=== PATIENT | male | born 1965 | race Caucasian/White ===

== ENCOUNTER 2017-08-29 06:08 | Day surgery (SDC) | payer OTHER ==
[2017-08-28 09:11] VITALS: BMI 23.3
[2017-08-29 06:35] VITALS: TEMP 97.6
[2017-08-29] MEDS: CYCLOPENTOLATE HCL 1% OPHTH SOLN 2 ML BOTTLE ONE ×3 (06:35→06:45)
[2017-08-29] MEDS: FLURBIPROFEN 0.03% OPHTH SOLN 2.5 ML BOTTLE ONE ×3 (06:35→06:45)
[2017-08-29] MEDS: TROPICAMIDE 1% OPHTH SOLN 15 ML BOTTLE ONE ×3 (06:35→06:45)
[2017-08-29] MEDS: PHENYLEPHRINE 2.5% OPHTH SOLN 15 ML BOTTLE ONE ×3 (06:35→06:45)
[2017-08-29] MEDS: CIPROFLOXACIN 0.3% EYE DROPS 5 ML BOTTLE ONE ×3 (06:35→06:45)
[2017-08-29] MEDS ORDERED: MIDAZOLAM HCL 2 MG/2 ML SINGLE DOSE VIAL ONE (07:20)
[2017-08-29] MEDS ORDERED: LIDOCAINE HCL/PF 1% SDV 5ML VIAL ONE (07:28)
[2017-08-29] MEDS ORDERED: EPINEPHrine/PF 1 MG/1 ML (1:1,000) AMPULE ONE (07:28)
[2017-08-29] MEDS ORDERED: TETRACAINE 0.5% OPHTH SOLN 2 ML BOTTLE ONE (07:28)
[2017-08-29] MEDS ORDERED: VANCOMYCIN 500 MG VIAL (RESTRICTED TO ID ONLY) ONE (07:28)
[2017-08-29] MEDS ORDERED: WATER FOR INJ,STERILE 10 ML ONE (07:29)
[2017-08-29] MEDS ORDERED: BSS (NA/CA/MG/K) BALANCED SALT SOLUTION OPHTH SOLN 15 ML BOTTLE ONE (07:29)
[2017-08-29] MEDS ORDERED: POVIDONE-IODINE 5% OPHTHALMIC PREP 30 ML SOLUTION ONE (07:29)
[2017-08-29] MEDS ORDERED: ACETAMINOPHEN 325 MG TABLET (FP) PO PRN (07:48)
[2017-08-29] MEDS ORDERED: TETRACAINE 0.5% OPHTH SOLN 2 ML BOTTLE OD ONE (07:57)
[2017-08-29] MEDS ORDERED: CYCLOPENTOLATE HCL 1% OPHTH SOLN 2 ML BOTTLE OP SCH (08:00)
[2017-08-29] MEDS ORDERED: CIPROFLOXACIN HCL 0.3% OPHTH 2.5ML BOTTLE OP SCH (08:00)
[2017-08-29] MEDS ORDERED: TROPICAMIDE 1% OPHTH SOLN 15 ML BOTTLE OP SCH (08:00)
[2017-08-29] MEDS ORDERED: FLURBIPROFEN 0.03% OPHTH SOLN 2.5 ML BOTTLE OP SCH (08:00)
[2017-08-29] MEDS ORDERED: PHENYLEPHRINE 2.5% OPHTH SOLN 15 ML BOTTLE OP SCH (08:00)
[2017-08-29] MEDS ORDERED: POVIDONE-IODINE 5% OPHTHALMIC PREP 30 ML SOLUTION OD ONE (08:09)
[2017-08-29] MEDS ORDERED: BSS (NA/CA/MG/K) BALANCED SALT SOLUTION OPHTH SOLN 15 ML BOTTLE OD ONE (08:17)
[2017-08-29] MEDS ORDERED: LIDOCAINE HCL 1% PRESERVATIVE FREE - 30ML VIAL IO ONE (08:17)
[2017-08-29] MEDS ORDERED: CHONDROITIN SU A/HYALUR SOD 1 KIT IO ONE (08:17)
[2017-08-29] MEDS ORDERED: EPINEPHrine/PF 1 MG/1 ML (1:1,000) AMPULE IO ONE ×2 (08:17→08:24)
--- NOTE | 2017-08-29 08:59 | SPEC ---
DATE OF OPERATION: 08/29/2017 PREOPERATIVE DIAGNOSIS: Cataract, right eye. POSTOPERATIVE DIAGNOSIS: Cataract, right eye. PROCEDURE: Phacoemulsification of right cataract with posterior chamber intraocular lens implantation. The lens used [id number], 22.0 diopter power, serial No. [id number]. SURGEON: Sveta Poole M.D. ANESTHESIA: Topical MAC. COMPLICATIONS: None. DESCRIPTION OF PROCEDURE: The patient was brought to the operating room and correctly identified along with the operative site and the correct intraocular lens florez. The patient was then prepped and draped in the usual sterile fashion including 5% Betadine solution in the conjunctival sac and an eyelid drape. An eyelid speculum was then placed in the eye. A paracentesis port was created and approximately 0.5 mL of preservative free Lidocaine was then injected into the eye. Viscoelastic was then injected to inflate the anterior chamber. A temporal clear corneal wound was created. A continuous circular capsulorrhexis was performed. The nucleus was then hydrodissected with BSS and removed with phacoemulsification. The remaining cortical material was irrigated and aspirated. Viscoelastic was injected to inflate the capsular bag and the intraocular lens was then implanted into the capsular bag. The remaining Viscoelastic was irrigated and aspirated from the eye. The IOL was noted to be well centered and completely covered by the anterior capsulorrhexis. Topical vancomycin was placed and the eye patched and shielded. All wounds were tested and found to be watertight. No suture was placed. The eye was then shielded. The patient was then discharged from the operating room in stable condition. SVETA POOLE M.D. [id number]
[2017-08-29 09:39] VITALS: BP 113/75; PULSE 86
== END 2017-08-29 10:05 | disposition home or self-care (01) ==
LOC: JASU-SURG 06:08
PROVIDERS: ATTEND Ophthalmology
PROC: 08RJ3JZ Replacement of Right Lens with Synthetic Substitute, Percutaneous Approach (ICD-10-PCS; principal; 2017-08-29 08:00)
DX: H26.9 Unspecified cataract (principal)

== ENCOUNTER 2017-09-13 12:45 | Day surgery (SDC) | payer OTHER ==
[2017-09-04 15:58] VITALS: BMI 24.2
[2017-09-13 13:17] LABS: BASO % 0.6 % (0-2.0); EOS % 2.1 % (0-4.5); HEMATOCRIT 43.5 % (35.4-49); HEMOGLOBIN 14.1 GM/dL (11.7-16.9); LYMPH % 29.3 % (8-40); MCH 29.8 pg (25.7-33.7); MCHC 32.5 g/dl (32.0-35.9); MEAN CELL VOLUME 91.7 fl (80-96); MEAN PLT VOLUME 8.3 fl (7.5-11.1); MONO % 10.1 % (3.8-10.2); NEUT % 57.9 % (42.8-82.8); PLATELET COUNT 233 K/MM3 (134-434); RBC 4.74 M/mm3 (4.00-5.60); RDW 13.1 % (11.9-15.9); WHITE BLOOD COUNT 5.8 K/mm3 (4.0-10.0)
[2017-09-13 13:46] VITALS: TEMP 97.8
[2017-09-13 13:49] LABS: INR 0.96 (0.82-1.09); PROTHROMBIN TIME (PATIENT) 10.8 SEC (9.98-11.88)
[2017-09-13 16:37] VITALS: BP 142/80; PULSE 85
--- NOTE | 2017-09-18 14:29 | PATH ---
Cytology Non-Gynecological Report Patient Name: JEAN-PIERRE BOWER [facility]. Rec. #: [id number] /Age/Gender: 1965 (Age: 52) / M Account: [id number] Location: RADIOLOGY Taken: 09/13/2017 Received: 09/14/2017 Reported: 09/18/2017 Physicians: Leyda Gandara M.D. Specimen(s) Received PELVIC CYST Clinical History Pelvic cyst Final Diagnosis PELVIC CYST, FINE NEEDLE ASPIRATION: NEGATIVE FOR MALIGNANT CELLS. SATISFACTORY FOR EVALUATION. CYSTIC LESION WITH MACROPHAGES. SCATTERED MACROPHAGES IN A HEMORRHAGIC BACKGROUND WITH PROTEINACEOUS DEBRIS AND RARE NEUTROPHILS. Comment: Immunohistochemical stains performed and interpreted at [facility] show CK7, CK20 and DANILO are negative. Additional immunohistochemical stains performed at [place], [place] ([id number]) and interpreted at [facility] highlight CD68+ macrophages. MOC31, JG, and D2-40 are negative. Suggest clinical/radiologic correlation. Electronically Signed Meli Mcguire M.D. Gross Description Approximately 50 cc of green fluid received fixed in 50% alcohol. Two cytofunnels and one cellblock prepared.
== END 2017-09-13 16:40 | disposition home or self-care (01) ==
LOC: JRADIR 12:45
PROVIDERS: ATTEND Urology
PROC: 0J9C3ZX Drainage of Pelvic Region Subcutaneous Tissue and Fascia, Percutaneous Approach, Diagnostic (ICD-10-PCS; principal; 2017-09-13)
DX: R19.07 Generalized intra-abdominal and pelvic swelling, mass and lump (principal)
CPT/HCPCS: 10030; 36415; 76098-TC; 77012-TC; 85025; 85610; 87070; 87075; 87205; 87899; 88173; 88341-TC; 88342-TC

== ENCOUNTER 2017-10-22 06:53 | Inpatient (IN) | payer OTHER ==
[2017-10-22 07:23] VITALS: BMI 24.2
[2017-10-22] MEDS ORDERED: ONDANSETRON 4 MG/2 ML VIAL IVPUSH ONE (08:24)
[2017-10-22] MEDS ORDERED: morphine CARPU-JECT 4 MG/1 ML DISP.SYRIN IVPUSH ONE (08:24)
[2017-10-22] MEDS ORDERED: ONDANSETRON 4 MG/2 ML VIAL ONE (08:41)
[2017-10-22] MEDS ORDERED: MORPHINE SULFATE 10 MG/1 ML *VIAL ONE (08:41)
--- NOTE | 2017-10-22 08:44 | PDOC ---
Attending Attestation - HPI HPI: 10/22/17 11:23 The patient is a 52 year old male with a significant PMH of undifferentiated pelvic mass, IDDM, and HTN who presents to the emergency department with abdominal pain that began approximately two weeks ago. The patient is also complaining of lower back pain, left leg limp, decreased urination, and constipation. Of note, the patient had a scheduled procedure on 10/24/17 for a cystic mass but was unable to wait. The patient denies chest pain, shortness of breath, headache and dizziness. Denies fever, chills, nausea, vomit, and diarrhea. Denies dysuria, frequency, urgency and hematuria. Allergies: Levofloxacin Past surgical history: None reported. Social history: No reported alcohol, drug, or cigarette use. PCP: Dr. Kelby Calvert <Latha Kaba - Last Filed: 10/22/17 11:23> - Resident Resident Name: Brandon Cason - ED Attending Attestation I have performed the following: I have examined & evaluated the patient, The case was reviewed & discussed with the resident, I agree w/resident's findings & plan, Exceptions are as noted - Physicial Exam PE: GENERAL: Awake, alert, and fully oriented. Appears uncomfortable. HEAD: No signs of trauma EYES: PERRLA, EOMI, sclera anicteric, conjunctiva clear ENT: Auricles normal inspection, hearing grossly normal, nares patent, oropharynx clear without exudates. Moist mucosa NECK: Normal ROM, supple, no lymphadenopathy, JVD, or masses LUNGS: Breath sounds equal, clear to auscultation bilaterally. No wheezes, and no crackles HEART: Regular rate and rhythm, normal S1 and S2, no murmurs, rubs or gallops ABDOMEN: Soft, diffusely tender, dec bowel sounds. +Guarding, no rebound. + Mild bladder distension. EXTREMITIES: Normal range of motion, no edema. No clubbing or cyanosis. No cords, erythema, or tenderness NEUROLOGICAL: Cranial nerves II through XII grossly intact. Normal speech, normal gait SKIN: Warm, Dry, normal turgor, no rashes or lesions noted. - Medical Decision Making Pt to have CT a/p to reevaluate the mass, likely admission as per Dr. Yeh. <Floresita Kumari - Last Filed: 10/22/17 16:21>
--- NOTE | 2017-10-22 09:14 | PDOC ---
History of Present Illness - General Chief Complaint: Urinary Problem Stated Complaint: URINE & BOWEL PROBLEM Time Seen by Provider: 10/22/17 08:11 History Source: Patient, Family Exam Limitations: Language Barrier - History of Present Illness Initial Comments: 10/22/17 09:05 Patient is a 52M with history of an undifferentiated pelvic mass, IDDM, HTN here today complaining of abdominal pain worsening over the past two weeks. He has associated pain in his lower back, left leg limp, decreased urination and constipation. He states that he cannot urinate normally, only having a small amount of urine coming out. He states that he's not had a bowel movement for 2 weeks. He is not on any opioids. Patient had the cystic mass drained on . MRI/CT show large presacral mass. Patient was scheduled for procedure on Sunday, but feels like he can't wait anymore. Past History - Past Medical History Allergies/Adverse Reactions: Allergies Allergy/AdvReac Type Severity Reaction Status Date / Time levofloxacin [From Levaquin] Allergy "MOUTH Verified 10/22/17 07:09 SWELLING,HIVES" Home Medications: Ambulatory Orders Insulin (Levemir) [Levemir Flexpen -] 15 units SQ DAILY 08/29/17 Metformin HCl 500 mg PO BID 08/29/17 Tamsulosin HCl 0.4 mg PO HS 08/29/17 Dapagliflozin Propanediol [Farxiga] 5 mg PO DAILY 10/22/17 Anemia: No Asthma: No Cancer: No Cardiac Disorders: No CVA: No COPD: No CHF: No DVT: No Dementia: No Diabetes: Yes GI Disorders: No Disorders: No HTN: No Hypercholesterolemia: No Liver Disease: No Seizures: No Thyroid Disease: No Other medical history: tumor in abdomen - Surgical History Abdominal Surgery: Yes Appendectomy: No Cardiac Surgery: No Cholecystectomy: No Lung Surgery: No Neurologic Surgery: No Orthopedic Surgery: No - Suicide/Smoking/Psychosocial Hx Smoking History: Never smoked Have you smoked in the past 12 months: No Hx Alcohol Use: No Drug/Substance Use Hx: No Substance Use Type: None Hx Substance Use Treatment: No Review of Systems - Review of Systems Comments:: 10/22/17 09:14 GENERAL/CONSTITUTIONAL: No fever or chills. 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 No sore throat. CARDIOVASCULAR: No chest pain or shortness of breath RESPIRATORY: No cough, wheezing, or hemoptysis. GASTROINTESTINAL: No vomiting, diarrhea. Positive for constipation and nausea. GENITOURINARY: No dysuria. Positive for increased frequency and decreased volume. MUSCULOSKELETAL: No joint or muscle swelling or pain. No neck or back pain. SKIN: No rash NEUROLOGIC: No headache, vertigo, loss of consciousness, or change in strength/ sensation. ENDOCRINE: No increased thirst. No abnormal weight change HEMATOLOGIC/LYMPHATIC: No anemia, easy bleeding, or history of blood clots. ALLERGIC/IMMUNOLOGIC: No hives or skin allergy. *Physical Exam - Vital Signs Last Vital Signs Temp Pulse Resp BP Pulse Ox 97.3 F L 87 18 137/83 97 10/22/17 07:07 10/22/17 07:07 10/22/17 07:07 10/22/17 07:07 10/22/17 07:07 - Physical Exam Comments: 10/22/17 09:16 GENERAL: Awake, alert, and fully oriented, in no acute distress HEAD: No signs of trauma, normocephalic, atraumatic EYES: PERRLA, EOMI, sclera anicteric, conjunctiva clear ENT: Auricles normal inspection, hearing grossly normal, nares patent, oropharynx clear without exudates. Moist mucosa NECK: Normal ROM, supple, no lymphadenopathy, JVD, or masses LUNGS: No distress, speaks full sentences, clear to auscultation bilaterally HEART: Regular rate and rhythm, normal S1 and S2, no murmurs, rubs or gallops, peripheral pulses normal and equal bilaterally. ABDOMEN: Distended and diffusely tender. No guarding, no rebound. EXTREMITIES: Normal inspection, Normal range of motion, no edema. No clubbing or cyanosis. NEUROLOGICAL: Cranial nerves II through XII grossly intact. Normal speech, favors left leg on gait, no focal sensorimotor deficits SKIN: Warm, Dry, normal turgor, no rashes or lesions noted. ED Treatment Course - LABORATORY CBC & Chemistry Diagram: 10/22/17 09:10 10/22/17 09:10 - RADIOLOGY Radiology Studies Ordered: Category Date Time Status ABDOMEN & PELVIS CT WITH CONTR [CT] Stat CT Scan 10/22/17 08:31 Ordered CHEST PA & LAT [RAD] Stat Radiology 10/22/17 08:22 Ordered Medical Decision Making - Medical Decision Making 10/22/17 09:17 Patient is 52M with history of undifferentiated mass, HTN, DM here today complaining of abdominal pain, decreased urination, and constipation. Vital signs stable and normal. Call placed to Dr Yeh, patient's surgeon. Confirms was due for procedure on Sunday. Will evaluate with CBC, CMP, PT/INR, Lipase, UA , UC, CT abd/pelvis. Will place leal to decompress bladder. Urologist: Dr Milo Calvert 10/22/17 11:21 Laboratory Tests 10/22/17 10/22/17 10/22/17 09:08 09:10 09:10 WBC 6.3 Hgb 14.4 Hct 43.7 Plt Count 223 BUN 22 H Creatinine 0.8 Urine Glucose (UA) 3+ H Urine WBC (Auto) 1 Urine RBC (Auto) 4 Patient urinating. Elal cancelled. CBC normal. UA positive for glucose, no infection. Cr wnl. CXR shows no free air , no acute cardiopulmonary process. CT pending. 10/22/17 13:02 CT shows mass increasing in size. Will admit to Per, call placed to Dr Yeh to advise of results. 10/22/17 13:25 Dr Albarado accepted admission. *DC/Admit/Observation/Transfer Diagnosis at time of Disposition: Abdominal mass - Discharge Dispostion Condition at time of disposition: Stable Admit: Yes - Referrals Referrals: Kelby Calvert MD [Primary Care Provider] - - Patient Instructions - Post Discharge Activity
[2017-10-22 09:25] LABS: BASO % 0.7 % (0-2.0); EOS % 0.9 % (0-4.5); HEMATOCRIT 43.7 % (35.4-49); HEMOGLOBIN 14.4 GM/dL (11.7-16.9); LYMPH % 19.7 % (8-40); MCH 30.3 pg (25.7-33.7); MEAN CELL VOLUME 91.8 fl (80-96); MEAN PLT VOLUME 8.1 fl (7.5-11.1); MONO % 8.1 % (3.8-10.2); NEUT % 70.6 % (42.8-82.8); PLATELET COUNT 223 K/MM3 (134-434); RBC 4.76 M/mm3 (4.00-5.60); WHITE BLOOD COUNT 6.3 K/mm3 (4.0-10.0)
[2017-10-22 09:42] LABS: URINE APPEARANCE CLEAR; URINE BILIRUBIN NEGATIVE (NEGATIVE); URINE BLOOD 2+ (NEGATIVE); URINE COLOR LTYELLOW; URINE GLUCOSE (UA) 3+ (NEGATIVE); URINE KETONE NEGATIVE (NEGATIVE); URINE LEUK ESTERASE NEGATIVE (NEGATIVE); URINE NITRITE NEGATIVE (NEGATIVE); URINE UROBILINOGEN NEGATIVE mg/dL (0.2-1.0)
[2017-10-22 09:45] LABS: INR 0.93 (0.82-1.09); PROTHROMBIN TIME (PATIENT) 10.5 SEC (9.98-11.88)
[2017-10-22 09:45] LABS: URINE PROTEIN 2+ (NEGATIVE)
[2017-10-22 09:47] LABS: EPI CELLS RARE /HPF (FEW); URINE HYALINE CAST 1 /lpf; URINE MUCUS RARE
[2017-10-22 09:49] LABS: ALBUMIN 3.3 g/dl (3.4-5.0); ALK PHOS 107 U/L (45-117); ANION GAP 5 (8-16); BILIRUBIN,TOTAL 0.4 mg/dL (0.2-1.0); BLOOD UREA NITROGEN 22 mg/dL (7-18); CALCIUM 7.9 mg/dL (8.5-10.1); CHLORIDE 106 mmol/L (98-107); CO2 27 mmol/L (21-32); CREATININE 0.8 mg/dL (0.7-1.3); GLUCOSE,RANDOM 123 mg/dL (74-106); POTASSIUM 4.8 mmol/L (3.5-5.1); SGOT/AST 14 U/L (15-37); SGPT/ALT 23 U/L (12-78); SODIUM 138 mmol/L (136-145); TOT PROT 6.4 g/dl (6.4-8.2)
[2017-10-22 09:59] LABS: LIPASE 254 U/L (73-393)
--- NOTE | 2017-10-22 18:18 | CONSULT ---
Consult Consult Specialty:: Surgery Reason for Consultation:: Pre-sacral cystic mass - History of Present Illness Chief Complaint: Abdominal pain History of Present Illness: The patient is a 52 year old male with a significant PMH large pre-sacral csytic mass, IDDM, and HTN who presents to the emergency department with perineal and abdominal pain that began approximately two weeks ago. The patient is also complaining of lower back pain, left leg limp, decreased urination, and constipation. Of note, the patient is scheduled for surgery on 10/24/17 for a cystic mass but is unable to wait. Patient had percutaneous cyst aspiration recently with negtive cytology. The patient denies chest pain, shortness of breath, headache and dizziness. Denies fever, chills, nausea, vomit, and diarrhea. Denies dysuria, frequency, urgency and hematuria. - History Source History Provided By: Family Member Limitations to Obtaining History: No Limitations - Past Medical History Cardio/Vascular: Yes: HTN Endocrine: Yes: Diabetes Mellitus - Alcohol/Substance Use Hx Alcohol Use: No - Smoking History Smoking history: Never smoked Have you smoked in the past 12 months: No Home Medications - Allergies Allergies/Adverse Reactions: Allergies Allergy/AdvReac Type Severity Reaction Status Date / Time levofloxacin [From Levaquin] Allergy "MOUTH Verified 10/22/17 07:09 SWELLING,HIVES" - Home Medications Home Medications: Ambulatory Orders Insulin (Levemir) [Levemir Flexpen -] 15 units SQ DAILY 08/29/17 Metformin HCl 500 mg PO BID 08/29/17 Tamsulosin HCl 0.4 mg PO HS 08/29/17 Dapagliflozin Propanediol [Farxiga] 5 mg PO DAILY 10/22/17 Review of Systems - Review of Systems Gastrointestinal: reports: Abdominal Pain, Constipation, Other (perineal pain) Genitourinary: reports: Dysuria, Frequency Physical Exam Vital Signs: Vital Signs Temperature 98.1 F 10/22/17 17:36 Pulse Rate 75 10/22/17 17:36 Respiratory Rate 16 10/22/17 17:36 Blood Pressure 150/94 10/22/17 17:36 O2 Sat by Pulse Oximetry (%) 98 10/22/17 17:36 Constitutional: Yes: Well Nourished, Anxious Eyes: Yes: Conjunctiva Clear HENT: Yes: Normocephalic Neck: Yes: Supple Cardiovascular: Yes: Regular Rate and Rhythm Respiratory: Yes: CTA Bilaterally Gastrointestinal: Yes: Soft, Other (mild LLQ tenderness) ...Rectal Exam: Yes: Other (+ perineal fullness to the left of intergluteal fold with tenderness) Integumentary: Yes: WNL Labs: CBC, BMP 10/22/17 09:10 10/22/17 09:10 Imaging - Results Cat Scan: Report Reviewed, Image Reviewed MRI: Report Reviewed, Image Reviewed Problem List - Problems (1) Presacral mass Assessment/Plan: Explained to patient that the undersigned is unable to perform the procedure this week. The patient and his are not willing to wait due to severe pain. Recommended consulting another surgeon to perform the procedure and they agreed. Dr. Albarado informed of the plan. Code(s): R19.09 - OTHER INTRA-ABDOMINAL AND PELVIC SWELLING, MASS AND LUMP
[2017-10-23] MEDS ORDERED: morphine CARPU-JECT 4 MG/1 ML DISP.SYRIN IVPB PRN (02:19)
[2017-10-23] MEDS ORDERED: ONDANSETRON 4 MG/2 ML VIAL IVPUSH PRN (02:19)
[2017-10-23] MEDS ORDERED: INSULIN DETEMIR 100 UNITS/ML MDV SQ SCH (07:00)
--- NOTE | 2017-10-23 08:54 | EKG ---
Test Reason : Blood Pressure : / mmHG Vent. Rate : 078 BPM Atrial Rate : 078 BPM P-R Int : 180 ms QRS Dur : 072 ms QT Int : 376 ms P-R-T Axes : 061 017 018 degrees QTc Int : 428 ms NORMAL SINUS RHYTHM NORMAL ECG NO PREVIOUS ECGS AVAILABLE Confirmed by Tom Paniagua MD ([id number]) on 10/23/2017 8:54:02 AM Referred By: Confirmed By:Tom Paniagua MD
[2017-10-23] MEDS ORDERED: HEPARIN NA (PORCINE) 5,000 UNITS/ML 1ML VIAL SQ SCH (10:00)
[2017-10-23 12:18] VITALS: TEMP 98.2
[2017-10-23] MEDS: metFORMIN HCL 500 MG TABLET (FP) PO SCH ×2 (13:02→17:58)
[2017-10-23] MEDS: INSULIN SLIDING SCALE (NOVOLOG) 1 VIAL SQ SCH ×2 (13:27→17:58)
[2017-10-23] MEDS ORDERED: MORPHINE SULFATE 10 MG/1 ML *VIAL ONE (15:34)
[2017-10-23 15:59] VITALS: BP 140/104; PULSE 77
--- NOTE | 2017-10-23 17:06 | CONSULT ---
- Consultation REQUESTING PROVIDER: Per CONSULT REQUEST: We have been asked to surgically evaluate this patient for management of a pelvic cyst PCP:Floresita Albarado HISTORY OF PRESENT ILLNESS:52 y/o male presented w/ ? pelvic pain and progressive difficulty voiding and moving his bowels; outpatient w/u was done and cyst aspiration was done w/negative cytology; he was to have surgery by Dr. Asaf Yeh at [facility] in [place] h/e the patient came here b/o increased pain and " he couldn't wait ". PMHx: DM; BPH PSHx: umbilical hernia repair Home Medications Medication Instructions Recorded Insulin (Levemir) [Levemir Flexpen 15 units SQ DAILY 08/29/17 -] Metformin HCl 500 mg PO BID 08/29/17 Tamsulosin HCl 0.4 mg PO HS 08/29/17 Dapagliflozin Propanediol [Farxiga] 5 mg PO DAILY 10/22/17 Allergies Allergy/AdvReac Type Severity Reaction Status Date / Time levofloxacin [From Levaquin] Allergy "MOUTH Verified 10/22/17 07:09 SWELLING,HIVES" PHYSICAL EXAM: GENERAL: Awake, alert, and fully oriented, in no acute distress. HEAD: Normal with no signs of trauma. EYES: sclera anicteric, conjunctiva clear. NECK: Normal ROM, supple without lymphadenopathy, JVD, or masses. ABDOMEN: Soft, nontender, not distended, normoactive bowel sounds, no guarding, no rebound, no masses. No organomegaly. Fullness left buttock and perineum; normal genitalia; healed umbilical scar. MUSCULOSKELETAL: Normal ROM at all joints. No bony deformities or tenderness. No CVA tenderness. UPPER EXTREMITIES: 2+ pulses, warm, well-perfused. No cyanosis. Cap refill <2 seconds. No peripheral edema. LOWER EXTREMITIES: 2+ pulses, warm, well-perfused. No calf tenderness. No peripheral edema. NEUROLOGICAL: Normal speech, gait not observed. PSYCH: Cooperative. Good eye contact. Appropriate mood and affect. SKIN: Warm, dry, normal turgor, no rashes or lesions noted. Vital Signs Temperature 98.2 F 10/23/17 15:57 Pulse Rate 77 10/23/17 15:57 Respiratory Rate 18 10/23/17 15:57 Blood Pressure 140/104 10/23/17 15:57 O2 Sat by Pulse Oximetry (%) 98 10/23/17 06:42 Lab Results WBC 6.3 K/mm3 (4.0-10.0) 10/22/17 09:10 RBC 4.76 M/mm3 (4.00-5.60) 10/22/17 09:10 Hgb 14.4 GM/dL (11.7-16.9) 10/22/17 09:10 Hct 43.7 % (35.4-49) 10/22/17 09:10 MCV 91.8 fl (80-96) 10/22/17 09:10 MCHC 33.0 g/dl (32.0-35.9) 10/22/17 09:10 RDW 13.0 % (11.9-15.9) 10/22/17 09:10 Plt Count 223 K/MM3 (134-434) 10/22/17 09:10 Sodium 138 mmol/L (136-145) 10/22/17 09:10 Potassium 4.8 mmol/L (3.5-5.1) 10/22/17 09:10 Chloride 106 mmol/L (98-107) 10/22/17 09:10 Carbon Dioxide 27 mmol/L (21-32) 10/22/17 09:10 Anion Gap 5 (8-16) L 10/22/17 09:10 BUN 22 mg/dL (7-18) H 10/22/17 09:10 Creatinine 0.8 mg/dL (0.7-1.3) 10/22/17 09:10 Random Glucose 123 mg/dL (74-106) H 10/22/17 09:10 Calcium 7.9 mg/dL (8.5-10.1) L 10/22/17 09:10 INR 0.93 (0.82-1.09) 10/22/17 09:10 Imaging w/u to date reviewed IMP: Cystic pelvic mass of ? origin. PLAN; ? re-attempt at percutaneous drainage w/ placement of an indwelling cathere to temporize vs. exploration and resection h/e might need an approach by A surgical Oncologist as this may indeed be a malignancy until proven o/w ; will d/w Dr. Albarado. Govind Lezama MD FACS Visit type - Case Type Case Type: ED Admission - Emergency Emergency Visit: Yes ED Registration Date: 10/22/17 Care time: The patient presented to the Emergency Department on the above date and was hospitalized for further evaluation of their emergent condition. - New patient This patient is new to me today: Yes Date on this admission: 10/23/17 - Critical Care Critical Care patient: No
[2017-10-23] MEDS ORDERED: TAMSULOSIN HCL 0.4 MG CAP.ER.24H (FP) PO SCH (22:00)
--- NOTE | 2017-10-24 17:32 | HP ---
Admitting History and Physical - Admission Chief Complaint: Pt seen and examined on 10/23/17 however devon was not saved correctly History of Present Illness: Patient is a 52 y/o male with PMH significant for IDDM, HTN and cystic pelvic mass. Pt had undergone percutaneous cyst aspiration w/ negative cytology recently and is scheduled for surgery. However pt now pesents to the ER bc of increased abdominal pain wc he states he is not able to manage as outpt. here today complaining of abdominal pain worsening over the past two weeks. He has associated pain in his lower back and constipation. He states that he's not had a bowel movement for 2 weeks. Patient was scheduled for procedure on Sunday, but feels like he can't wait anymore. History Source: Patient, Family Member, Medical Record - Past Medical History Cardiovascular: Yes: HTN Endocrine: Yes: Diabetes Mellitus - Smoking History Smoking history: Never smoked Have you smoked in the past 12 months: No - Alcohol/Substance Use Hx Alcohol Use: No Home Medications - Allergies Allergies/Adverse Reactions: Allergies Allergy/AdvReac Type Severity Reaction Status Date / Time levofloxacin [From Levaquin] Allergy "MOUTH Verified 10/22/17 07:09 SWELLING,HIVES" - Home Medications Home Medications: Ambulatory Orders Insulin (Levemir) [Levemir Flexpen -] 15 units SQ DAILY 08/29/17 Metformin HCl 500 mg PO BID 08/29/17 Tamsulosin HCl 0.4 mg PO HS 08/29/17 Dapagliflozin Propanediol [Farxiga] 5 mg PO DAILY 10/22/17 Family Disease History - Family Disease History Family History: Unremarkable Review of Systems - Review of Systems Constitutional: reports: Loss of Appetite, Weakness Neck: reports: No Symptoms Cardiovascular: reports: No Symptoms Respiratory: reports: No Symptoms Gastrointestinal: reports: Abdominal Pain Genitourinary: reports: No Symptoms Physical Examination Vital Signs: Vital Signs Temperature 98.2 F 10/23/17 15:57 Pulse Rate 77 10/23/17 15:57 Respiratory Rate 18 10/23/17 15:57 Blood Pressure 140/104 10/23/17 15:57 O2 Sat by Pulse Oximetry (%) 98 10/23/17 09:00 Neck: Yes: WNL, Supple Cardiovascular: Yes: WNL, Regular Rate and Rhythm Respiratory: Yes: WNL, Regular, CTA Bilaterally Gastrointestinal: Yes: Tenderness, Other ((-) guarding/rebound) Musculoskeletal: Yes: WNL Extremities: Yes: WNL Edema: No Neurological: Yes: WNL, Alert, Oriented ...Motor Strength: WNL Labs: CBC, BMP 10/22/17 09:10 10/22/17 09:10 Problem List - Problems (1) Abdominal mass Assessment/Plan: Due to cystic pelvic mass Surgical consult called Keep NPO Cont zofran/morphine Code(s): R19.00 - INTRA-ABD AND PELVIC SWELLING, MASS AND LUMP, UNSP SITE (2) HTN (hypertension) Assessment/Plan: BP stable Code(s): I10 - ESSENTIAL (PRIMARY) HYPERTENSION (3) Diabetes Assessment/Plan: Cont sliding scale w/ coverage Code(s): E11.9 - TYPE 2 DIABETES MELLITUS WITHOUT COMPLICATIONS
--- NOTE | 2017-10-24 17:33 | DS ---
Physical Examination Vital Signs: Vital Signs Temperature 98.2 F 10/23/17 15:57 Pulse Rate 77 10/23/17 15:57 Respiratory Rate 18 10/23/17 15:57 Blood Pressure 140/104 10/23/17 15:57 O2 Sat by Pulse Oximetry (%) 98 10/23/17 09:00 Labs: CBC, BMP 10/22/17 09:10 10/22/17 09:10 Discharge Summary Reason For Visit: ABDOMINAL MASS Condition: Stable - Instructions Referrals: Kelby Calvert MD [Primary Care Provider] - Disposition: AGAINST MEDICAL ADVICE - Home Medications Comprehensive Discharge Medication List: Ambulatory Orders Insulin (Levemir) [Levemir Flexpen -] 15 units SQ DAILY 08/29/17 Metformin HCl 500 mg PO BID 08/29/17 Tamsulosin HCl 0.4 mg PO HS 08/29/17 Dapagliflozin Propanediol [Farxiga] 5 mg PO DAILY 10/22/17
== END 2017-10-23 18:15 | disposition left against medical advice (07) | DRG 392 ==
LOC: JER 06:53 → JERBED 13:25
PROVIDERS: ADMIT Internal Medicine; ATTEND Internal Medicine
DX: R19.09 Other intra-abdominal and pelvic swelling, mass and lump (principal); E11.9 Type 2 diabetes mellitus without complications; I10 Essential (primary) hypertension
CPT/HCPCS: 36415; 71046-TC-FY; 74177-TC; 80053; 81003; 81015; 82962; 83690; 85025; 85610; 93005; 93010; 99285-25

== ENCOUNTER 2019-03-08 01:13 | Emergency (ER) | payer OTHER ==
[2019-03-08 02:05] VITALS: TEMP 97.9; BMI 25.0
[2019-03-08] MEDS ORDERED: ASPIRIN 81 MG CHEWABLE TABLETS PO ONE (02:08)
[2019-03-08] MEDS ORDERED: SODIUM CHLORIDE 1,000 ML IV STA (02:11)
[2019-03-08] MEDS ORDERED: HEPARIN NA (PORCINE) 5,000 UNITS/ML 1ML VIAL IVPUSH PRN (02:11)
[2019-03-08] MEDS ORDERED: ASPIRIN 325 MG TABLET ONE (02:14)
[2019-03-08] MEDS ORDERED: HEPARIN NA (PORCINE) 5,000 UNITS/ML 1ML VIAL ONE (02:14)
[2019-03-08] MEDS ORDERED: HEPARIN INFUSION - 25,000 UNITS/500 ML INFUS.BAG IVPB ONE (02:15)
[2019-03-08] MEDS ORDERED: CLOPIDOGREL BISULFATE 300 MG TABLET PO ONE (02:18)
[2019-03-08] MEDS ORDERED: HEPARIN NA (PORCINE) 5,000 UNITS/ML 1ML VIAL IVPUSH ONE (02:18)
[2019-03-08] MEDS ORDERED: CLOPIDOGREL BISULFATE 300 MG TABLET ONE (02:21)
--- NOTE | 2019-03-08 02:23 | PDOC ---
History of Present Illness - General Chief Complaint: Nausea/Vomiting Stated Complaint: SICK, VOMIT, LEFT ARM PAIN Time Seen by Provider: 03/08/19 02:11 History Source: Patient Exam Limitations: No Limitations - History of Present Illness Initial Comments: 03/08/19 02:14 54-year-old male with history of hypertension, diabetes presents with left sided chest pain since 11:30 PM. The patient was doing nothing unusual when he started feeling left-sided chest pressure with diaphoresis and shortness of breath. This is a first-time episode. Denies recent illnesses, fevers, chills, cough, vomiting, diarrhea. Patient family reports that the patient typically has uncontrolled diabetes. Past History - Past Medical History Allergies/Adverse Reactions: Allergies Allergy/AdvReac Type Severity Reaction Status Date / Time levofloxacin [From Levaquin] Allergy "MOUTH Verified 03/08/19 01:56 SWELLING,HIVES" Home Medications: Ambulatory Orders Insulin (Levemir) [Levemir Flexpen -] 15 units SQ DAILY 08/29/17 Tamsulosin HCl 0.4 mg PO HS 08/29/17 metFORMIN HCL [Metformin HCl] 500 mg PO BID 08/29/17 Dapagliflozin Propanediol [Farxiga] 5 mg PO DAILY 10/22/17 Anemia: No Asthma: No Cancer: No Cardiac Disorders: No CVA: No COPD: No CHF: No DVT: No Dementia: No Diabetes: Yes GI Disorders: No Disorders: No HTN: No Hypercholesterolemia: No Liver Disease: No Seizures: No Thyroid Disease: No - Surgical History Abdominal Surgery: Yes Appendectomy: No Cardiac Surgery: No Cholecystectomy: No Lung Surgery: No Neurologic Surgery: No Orthopedic Surgery: No - Suicide/Smoking/Psychosocial Hx Smoking History: Never smoked Have you smoked in the past 12 months: No Information on smoking cessation initiated: No Hx Alcohol Use: No Drug/Substance Use Hx: No Substance Use Type: None Hx Substance Use Treatment: No Review of Systems - Review of Systems Able to Perform ROS?: Yes Comments:: 03/08/19 02:15 GENERAL/CONSTITUTIONAL: [No fever or chills. No weakness. No weight change.] HEAD, EYES, EARS, NOSE AND THROAT: [No change in vision. No ear pain or discharge. No sore throat.] CARDIOVASCULAR: [+ chest pain or shortness of breath.] RESPIRATORY: [No cough, wheezing, or hemoptysis.] GASTROINTESTINAL: [No nausea, vomiting, diarrhea or constipation. No rectal bleeding.] GENITOURINARY: [No dysuria, frequency, or change in urination.] MUSCULOSKELETAL: [No joint or muscle swelling or pain. No neck or back pain.] SKIN AND BREASTS: [No rash or easy bruising.] NEUROLOGIC: [No headache, vertigo, loss of consciousness, or loss of sensation.] PSYCHIATRIC: [No depression or anxiety.] ENDOCRINE: [No increased thirst. No abnormal weight change.] HEMATOLOGIC/LYMPHATIC: [No anemia, easy bleeding, or history of blood clots.] ALLERGIC/IMMUNOLOGIC: [No hives or skin allergy. No latex allergy.] *Physical Exam - Vital Signs Last Vital Signs Temp Pulse Resp BP Pulse Ox 97.9 F 79 20 143/95 98 03/08/19 01:20 03/08/19 01:20 03/08/19 01:20 03/08/19 01:20 03/08/19 01:20 - Physical Exam Comments: 03/08/19 02:15 GENERAL: Awake, alert, and fully oriented, uncomfrtable appearing HEAD: No signs of trauma EYES: PERRLA, EOMI, sclera anicteric, conjunctiva clear ENT: Auricles normal inspection, hearing grossly normal, nares patent, oropharynx clear without exudates. Moist mucosa NECK: Normal ROM, supple, no lymphadenopathy, JVD, or masses LUNGS: Breath sounds equal, clear to auscultation bilaterally. No wheezes, and no crackles HEART: Regular rate and rhythm, normal S1 and S2, no murmurs, rubs or gallops ABDOMEN: Soft, nontender, No guarding, no rebound. No masses EXTREMITIES: Normal range of motion, no edema. No clubbing or cyanosis. No cords, erythema, or tenderness NEUROLOGICAL: Cranial nerves II through XII grossly intact. Normal speech, SKIN: Warm, Dry, normal turgor, no rashes or lesions noted. Heart Score/ECG Review #1 ECG reviewed & interpreted by me at: 01:55 03/08/19 02:24 NSR 80, STEMI II, III, avF, STD I, avL, V2, QTC 447 msec #2 ECG reviewed & interpreted by me at: 02:15 03/08/19 02:24 Right sided ECG NSR 87, STEM II, III, avF< STD I, avL, TWI V1-V2, QTC 428 msec Medical Decision Making - Medical Decision Making 03/08/19 02:25 A portion of this note was documented by scribe services under my direction. I have reviewed the details of the note, within reason, and agree with the documentation with the following case summary and management plan written by me. Patient treated in the ED. Nursing notes are reviewed and incorporated into the medical decision-making. Vital signs reviewed. Peripheral IV access obtained by the nurse, laboratory studies are drawn and sent, reviewed and interpreted by myself. Vital Signs Temp Pulse Resp BP Pulse Ox 97.9 F 79 20 143/95 98 03/08/19 01:20 03/08/19 01:20 03/08/19 01:20 03/08/19 01:20 03/08/19 01:20 The patient is currently having an ST elevation NH. I have arranged spoken to [facility] cardiology which the patient for cardiac catheterization. The patient consents for transfer. The patient will be given 324m g of aspirin, 600 mg of oral Plavix and 5000 units of heparin. We'll transfer the patient immediately *DC/Admit/Observation/Transfer Diagnosis at time of Disposition: STEMI (ST elevation myocardial infarction) Qualifiers: Involved coronary artery: unspecified coronary artery Qualified Code(s): I21.3 - ST elevation (STEMI) myocardial infarction of unspecified site - Discharge Dispostion Disposition: TRANSFER ACUTE CARE/OTHER HOSP Condition at time of disposition: Guarded - Referrals Referrals: Kelby Calvert MD [Primary Care Provider] - - Patient Instructions - Post Discharge Activity - Transfer to Acute Care Facility Receiving Facility: [facility] Accepting Physician:: Dr. Parish
[2019-03-08] MEDS ORDERED: ONDANSETRON 4 MG/2 ML VIAL IVPUSH ONE (02:25)
[2019-03-08] MEDS ORDERED: ONDANSETRON 4 MG/2 ML VIAL ONE (02:25)
[2019-03-08 02:28] LABS: BASO % 0.5 % (0-2.0); EOS % 1.3 % (0-4.5); HEMATOCRIT 46.6 % (35.4-49); HEMOGLOBIN 15.2 GM/dL (11.7-16.9); LYMPH % 11.9 % (8-40); MCH 30.3 pg (25.7-33.7); MCHC 32.7 g/dl (32.0-35.9); MEAN CELL VOLUME 92.5 fl (80-96); MEAN PLT VOLUME 9.2 fl (7.5-11.1); MONO % 7.8 % (3.8-10.2); NEUT % 78.5 % (42.8-82.8); PLATELET COUNT 204 K/MM3 (134-434); RBC 5.03 M/mm3 (4.00-5.60); RDW 13.1 % (11.9-15.9); WHITE BLOOD COUNT 9.7 K/mm3 (4.0-10.0)
[2019-03-08 02:40] LABS: INR 0.84 (0.83-1.09); PROTHROMBIN TIME (PATIENT) 9.9 SEC (9.7-13.0)
[2019-03-08 02:43] LABS: ACTIVATED PTT 34.7 SECONDS (25.2-36.5)
[2019-03-08 02:53] LABS: ALBUMIN 3.1 g/dl (3.4-5.0); BILIRUBIN,TOTAL 0.4 mg/dL (0.2-1); BLOOD UREA NITROGEN 19.7 mg/dL (7-18); CALCIUM 8.5 mg/dL (8.5-10.1); POTASSIUM 4.5 mmol/L (3.5-5.1); TOT PROT 6.4 g/dl (6.4-8.2)
[2019-03-08 02:54] VITALS: BP 181/119; PULSE 109
--- NOTE | 2019-03-09 13:23 | EKG ---
Test Reason : Blood Pressure : / mmHG Vent. Rate : 087 BPM Atrial Rate : 087 BPM P-R Int : 184 ms QRS Dur : 088 ms QT Int : 356 ms P-R-T Axes : 057 074 097 degrees QTc Int : 428 ms NORMAL SINUS RHYTHM ANTEROLATERAL INFARCT , NEW ACUTE [place] / STEMI Consider right ventricular involvement in acute inferior infarct ABNORMAL ECG Confirmed by MD PALOMA, CAROLINA ([id number]) on 03/09/2019 1:22:42 PM Referred By: Confirmed By:CAROLINA DOW MD
--- NOTE | 2019-03-10 11:35 | EKG ---
Test Reason : Blood Pressure : / mmHG Vent. Rate : 080 BPM Atrial Rate : 080 BPM P-R Int : 182 ms QRS Dur : 094 ms QT Int : 388 ms P-R-T Axes : 065 075 097 degrees QTc Int : 447 ms NORMAL SINUS RHYTHM ST ELEVATION CONSIDER INFERIOR INJURY OR ACUTE INFARCT ACUTE [place] / STEMI Consider right ventricular involvement in acute inferior infarct ABNORMAL ECG WHEN COMPARED WITH ECG OF 22-OCT-2017 15:44, SIGNIFICANT CHANGES HAVE OCCURRED Confirmed by RALEIGH GAONA MD ([id number]) on 03/10/2019 11:35:24 AM Referred By: Confirmed By:RALEIGH GAONA MD
== END 2019-03-08 03:07 | disposition short-term general hospital (02) ==
LOC: JER 01:13
PROC: 3E0337Z Introduction of Electrolytic and Water Balance Substance into Peripheral Vein, Percutaneous Approach (ICD-10-PCS; principal; 2019-03-08)
PROC: 3E033GC Introduction of Other Therapeutic Substance into Peripheral Vein, Percutaneous Approach (ICD-10-PCS; 2019-03-08)
PROC: 3E033GC Introduction of Other Therapeutic Substance into Peripheral Vein, Percutaneous Approach (ICD-10-PCS; 2019-03-08)
DX: I21.3 ST elevation (STEMI) myocardial infarction of unspecified site (principal)
CPT/HCPCS: 36415; 71045-TC-FY; 80053; 82550; 82962; 84484; 85025; 85610; 85730; 86850; 86900; 86901; 93005; 93010; 99285-25; J1644; J7030

== ENCOUNTER 2019-03-28 18:43 | Inpatient (IN) | payer OTHER | END 2019-03-31 18:05 | disposition home or self-care (01) | LOC: JERBED 03-29 00:25 → JER 18:43 → J4W 03-29 20:45 ==

== ENCOUNTER 2021-06-29 05:07 | Day surgery (SDC) | payer OTHER ==
[2021-06-28 12:11] VITALS: BMI 27.8
[2021-06-29] MEDS ORDERED: MIDAZOLAM HCL 2 MG/2 ML SINGLE DOSE VIAL IVPUSH ONE ×2 (10:47→11:03)
[2021-06-29 14:22] VITALS: TEMP 98.2
[2021-06-29 16:00] VITALS: BP 149/89; PULSE 63
== END 2021-06-29 15:45 | disposition home or self-care (01) ==
LOC: JRADIR 05:07
PROVIDERS: ATTEND Internal Medicine Nephrology
PROC: 0TB03ZX Excision of Right Kidney, Percutaneous Approach, Diagnostic (ICD-10-PCS; principal; 2021-06-29)
DX: I12.9 Hypertensive chronic kidney disease with stage 1 through stage 4 chronic kidney disease, or unspecified chronic kidney disease (principal); E11.22 Type 2 diabetes mellitus with diabetic chronic kidney disease; N18.4 Chronic kidney disease, stage 4 (severe)
CPT/HCPCS: 50200; 88300-TC; 88329

== ENCOUNTER 2022-05-17 05:10 | Day surgery (SDC) | payer OTHER ==
[2022-05-16 10:33] VITALS: BMI 25.7
[2022-05-17] MEDS ORDERED: EPINEPHrine/PF 1 MG/1 ML (1:1,000) AMPULE ONE (06:46)
[2022-05-17] MEDS ORDERED: BUPIVACAINE HCL 50 ML ONE ×3 (06:47→07:21)
[2022-05-17] MEDS ORDERED: DEXAMETHASONE SOD PHOSPHATE 10 MG/1 ML VIAL ONE (06:47)
[2022-05-17] MEDS ORDERED: DEXMEDETOMIDINE HCL 200 MCG/2 ML IVPB ONE (06:47)
[2022-05-17] MEDS ORDERED: HEPARIN NA (PORCINE) 5,000 UNITS/ML 1ML VIAL ONE ×2 (06:48→07:16)
[2022-05-17] MEDS ORDERED: ACETAMINOPHEN INJECTION 100 ML IVPB ONE (06:48)
[2022-05-17] MEDS ORDERED: ceFAZolin SODIUM 1 GM VIAL ONE (06:55)
[2022-05-17] MEDS ORDERED: PROPOFOL 80 ML ONE (06:55)
[2022-05-17] MEDS ORDERED: MIDAZOLAM HCL 2 MG/2 ML SINGLE DOSE VIAL ONE (07:05)
[2022-05-17] MEDS ORDERED: LIDOCAINE HCL 1%, 10 MG/ML (20ML VIAL) ONE (07:16)
[2022-05-17] MEDS ORDERED: LIDOCAINE HCL 2% (20ML MULTI-DOSE VIAL) ONE (07:21)
[2022-05-17] MEDS ORDERED: PAPAVERINE HCL 30 MG/1 ML 10 ML VIAL NR ONE (07:42)
[2022-05-17] MEDS ORDERED: ceFAZolin SODIUM 1 GM VIAL IVPB ONE (08:30)
[2022-05-17] MEDS ORDERED: HEPARIN NA (PORCINE) 5,000 UNITS/ML 1ML VIAL SQ ONE (08:48)
[2022-05-17] MEDS ORDERED: LIDOCAINE HCL 1%, 10 MG/ML (20ML VIAL) SQ ONE (09:41)
[2022-05-17] MEDS ORDERED: ONDANSETRON 4 MG/2 ML VIAL IVPUSH PRN (10:03)
[2022-05-17 10:17] VITALS: RESP 16
[2022-05-17 11:07] VITALS: TEMP 98.5
[2022-05-17 12:30] VITALS: BP 174/98; PULSE 72
== END 2022-05-17 12:00 | disposition home or self-care (01) ==
LOC: JASU-SURG 05:10
PROVIDERS: ATTEND Surgery
PROC: 031A0ZF Bypass Left Ulnar Artery to Lower Arm Vein, Open Approach (ICD-10-PCS; principal; 2022-05-17 08:00)
DX: I12.0 Hypertensive chronic kidney disease with stage 5 chronic kidney disease or end stage renal disease (principal); E11.22 Type 2 diabetes mellitus with diabetic chronic kidney disease; N18.6 End stage renal disease; Z99.2 Dependence on renal dialysis
CPT/HCPCS: 36415; 82947; 82962; 84132; 94760; J1100; J1644

== ENCOUNTER 2022-06-28 04:32 | Day surgery (SDC) | payer OTHER ==
[2022-06-26 14:33] VITALS: BMI 23.3
[~2022-06-28 04:32] MED LIST: HEPARIN NA (PORCINE) 5,000 UNITS/ML 1ML VIAL SQ ONE; LIDOCAINE HCL 1%, 10 MG/ML (20ML VIAL) INF ONE
[2022-06-28 11:09] LABS: INR 0.92 (0.83-1.09); PROTHROMBIN TIME (PATIENT) 10.6 SEC (9.7-13.0)
[2022-06-28] MEDS ORDERED: LIDOCAINE HCL 1%, 10 MG/ML (20ML VIAL) ONE (11:56)
[2022-06-28] MEDS ORDERED: PAPAVERINE HCL 30 MG/1 ML 10 ML VIAL NR ONE (11:56)
[2022-06-28] MEDS ORDERED: HEPARIN NA (PORCINE) 5,000 UNITS/ML 1ML VIAL ONE (11:57)
[2022-06-28] MEDS ORDERED: MIDAZOLAM HCL 2 MG/2 ML SINGLE DOSE VIAL ONE (12:08)
[2022-06-28] MEDS ORDERED: PROPOFOL 20 ML ONE (12:13)
[2022-06-28] MEDS ORDERED: ceFAZolin SODIUM 1 GM VIAL IVPB ONE ×2 (12:40→12:51)
[2022-06-28] MEDS ORDERED: LIDOCAINE HCL 1%, 10 MG/ML (20ML VIAL) INF ONE (12:50)
[2022-06-28] MEDS ORDERED: ONDANSETRON 4 MG/2 ML VIAL IVPUSH PRN (14:50)
[2022-06-28] MEDS ORDERED: ACETAMINOPHEN 500 MG TABLET (FP) PO ONE (14:59)
[2022-06-28 16:35] VITALS: RESP 18
[2022-06-28] MEDS ORDERED: oxyCODONE HCL 5 MG TABLET PO ONE (17:15)
[2022-06-28] MEDS ORDERED: oxyCODONE HCL 5 MG TABLET ONE (17:23)
[2022-06-28 17:47] VITALS: TEMP 97.9
[2022-06-28 18:23] VITALS: BP 139/78; PULSE 80
== END 2022-06-28 18:15 | disposition home or self-care (01) ==
LOC: JASU-SURG 04:32
PROVIDERS: ATTEND Surgery
PROC: 03180ZD Bypass Left Brachial Artery to Upper Arm Vein, Open Approach (ICD-10-PCS; principal; 2022-06-28 12:00)
DX: I12.0 Hypertensive chronic kidney disease with stage 5 chronic kidney disease or end stage renal disease (principal); E11.22 Type 2 diabetes mellitus with diabetic chronic kidney disease; N18.6 End stage renal disease; Z99.2 Dependence on renal dialysis
CPT/HCPCS: 36415; 82962; 84132; 85610; 94760; J1644

== ENCOUNTER 2022-11-07 04:42 | Day surgery (SDC) | payer OTHER ==
[2022-11-03 16:15] VITALS: BMI 23.7
[2022-11-07 11:28] VITALS: TEMP 98
[2022-11-07 11:35] VITALS: PULSE 73; RESP 18
[2022-11-07 12:42] VITALS: BP 112/64
== END 2022-11-07 12:25 | disposition home or self-care (01) ==
LOC: JASU-ENDO 04:42
PROVIDERS: ATTEND Student in an Organized Health Care Education/Training Program
PROC: 0DB78ZX Excision of Stomach, Pylorus, Via Natural or Artificial Opening Endoscopic, Diagnostic (ICD-10-PCS; 2022-11-07)
PROC: 0DB68ZX Excision of Stomach, Via Natural or Artificial Opening Endoscopic, Diagnostic (ICD-10-PCS; 2022-11-07)
PROC: 0DB48ZX Excision of Esophagogastric Junction, Via Natural or Artificial Opening Endoscopic, Diagnostic (ICD-10-PCS; 2022-11-07)
PROC: 0DB98ZX Excision of Duodenum, Via Natural or Artificial Opening Endoscopic, Diagnostic (ICD-10-PCS; principal; 2022-11-07 10:30)
DX: K21.00 Gastro-esophageal reflux disease with esophagitis, without bleeding (principal); K29.70 Gastritis, unspecified, without bleeding; K29.80 Duodenitis without bleeding; E11.9 Type 2 diabetes mellitus without complications; I10 Essential (primary) hypertension
CPT/HCPCS: 36415; 82962; 84132; 88305-TC; 88342-TC

== ENCOUNTER 2022-11-15 12:50 | Inpatient (IN) | payer OTHER ==
[2022-11-15 13:04] VITALS: BMI 23.7
[2022-11-15] MEDS ORDERED: ONDANSETRON 4 MG/2 ML VIAL IVPUSH ONE (13:56)
[2022-11-15] MEDS ORDERED: ONDANSETRON 4 MG/2 ML VIAL ONE (13:58)
[2022-11-15] MEDS ORDERED: NITROGLYCERIN 25MG/D5W 250ML 25 MG/250 ML ML IVPB SCH (14:00)
[2022-11-15 14:53] LABS: BASO % 0.4 % (0-2.0); EOS % 1.8 % (0-4.5); HEMATOCRIT 35.3 % (35.4-49); HEMOGLOBIN 11.6 GM/dL (11.7-16.9); LYMPH % 8.2 % (8-40); MCH 31.6 pg (25.7-33.7); MCHC 32.8 g/dl (32.0-35.9); MEAN CELL VOLUME 96.2 fl (80-96); MEAN PLT VOLUME 9.1 fl (7.5-11.1); MONO % 12.3 % (3.8-10.2); NEUT % 77.3 % (42.8-82.8); PLATELET COUNT 153 10^3/uL (134-434); RBC 3.67 M/mm3 (4.00-5.60); RDW 15.5 % (11.9-15.9)
[2022-11-15 15:12] LABS: CALCIUM 8.2 mg/dL (8.5-10.1)
[2022-11-15 15:13] LABS: ALBUMIN 2.8 g/dl (3.4-5.0); BLOOD UREA NITROGEN 54.6 mg/dL (7-18); MAGNESIUM 2.5 mg/dL (1.8-2.4)
[2022-11-15 15:16] LABS: CREATININE 6.8 mg/dL (0.55-1.3); PHOSPHOROUS 5.1 mg/dL (2.5-4.9)
[2022-11-15 15:17] LABS: BILIRUBIN,TOTAL 0.7 mg/dL (0.2-1); TOT PROT 5.8 g/dl (6.4-8.2)
[2022-11-15 15:22] LABS: EPI CELLS 21 /uL (0-25.1); HYALINE CASTS 0 /uL (0-3.1); PH,URINE 6.5 (5.0-8.0); URINE APPEARANCE CLEAR; URINE BACTERIA 17 /uL (0-1359); URINE BILIRUBIN NEGATIVE (NEGATIVE); URINE COLOR YELLOW; URINE GLUCOSE (UA) 2+ (NEGATIVE); URINE KETONE NEGATIVE (NEGATIVE); URINE LEUK ESTERASE TRACE (NEGATIVE); URINE NITRITE NEGATIVE (NEGATIVE); URINE PROTEIN 4+ (NEGATIVE); URINE RBC 58 /uL (0-23.9); URINE UROBILINOGEN 0.2 mg/dL (0.2-1.0); URINE WBC 76 /uL (0-25.8)
[2022-11-15] MEDS ORDERED: FUROSEMIDE 40 MG/4 ML INJECTABLE VIAL IVPUSH ONE (15:32)
[2022-11-15] MEDS ORDERED: FUROSEMIDE 40 MG/4 ML INJECTABLE VIAL ONE (15:48)
[2022-11-15] MEDS ORDERED: NITROGLYCERIN 2% OINTMENT - 1GM PACKET TD ONE ×2 (15:56→16:32)
[2022-11-15] MEDS ORDERED: SODIUM CHLORIDE 250 ML IV PRN (17:35)
[2022-11-15] MEDS: ATORVASTATIN CA 80 MG TABLET (FP) PO SCH (22:35)
[2022-11-16] MEDS: hydrALAZINE HCL 50 MG TABLET (FP) PO SCH ×3 (06:28→22:35)
[2022-11-16] MEDS: INSULIN (LEVEMIR) 100 UNITS/ML UNITS SQ SCH (06:32)
[2022-11-16 08:09] LABS: BASO % 0.4 % (0-2.0); EOS % 3.1 % (0-4.5); HEMATOCRIT 35.3 % (35.4-49); HEMOGLOBIN 11.5 GM/dL (11.7-16.9); LYMPH % 10.1 % (8-40); MCHC 32.6 g/dl (32.0-35.9); MEAN CELL VOLUME 94.9 fl (80-96); MEAN PLT VOLUME 8.7 fl (7.5-11.1); MONO % 11.6 % (3.8-10.2); NEUT % 74.8 % (42.8-82.8); PLATELET COUNT 139 10^3/uL (134-434); RBC 3.72 M/mm3 (4.00-5.60); RDW 15.5 % (11.9-15.9); WHITE BLOOD COUNT 5.4 K/mm3 (4.0-10.0)
[2022-11-16 08:38] LABS: CALCIUM 8.2 mg/dL (8.5-10.1)
[2022-11-16 08:39] LABS: ALBUMIN 2.8 g/dl (3.4-5.0); BLOOD UREA NITROGEN 66.6 mg/dL (7-18)
[2022-11-16 08:43] LABS: BILIRUBIN,TOTAL 0.6 mg/dL (0.2-1); TOT PROT 5.8 g/dl (6.4-8.2)
[2022-11-16 08:53] LABS: LDL CHOLESTEROL (ONLY SJRH) 56 mg/dL (5-100)
[2022-11-16 09:36] LABS: CREATININE 7.8 mg/dL (0.55-1.3)
[2022-11-16] MEDS: PANTOPRAZOLE 40 MG TABLET PO SCH (11:01)
[2022-11-16] MEDS: ASPIRIN 81 MG CHEWABLE TABLETS PO SCH (11:01)
[2022-11-16 11:52] LABS: CHOLESTEROL 124 mg/dL (50-200); HDL CHOLESTEROL 56 mg/dL (40-60); TRIGLYCERIDES 50 mg/dL (0-150)
[2022-11-16] MEDS: HEPARIN NA (PORCINE) 5,000 UNITS/ML 1ML VIAL SQ SCH ×2 (12:31→22:36)
[2022-11-16] MEDS: ATORVASTATIN CA 80 MG TABLET (FP) PO SCH (22:35)
[2022-11-16] MEDS: DOCUSATE SODIUM 100 MG CAPSULE (FP) PO SCH (22:35)
[2022-11-16] MEDS: INSULIN SLIDING SCALE (NOVOLOG) 1 VIAL SQ SCH (22:39)
[2022-11-17] MEDS: hydrALAZINE HCL 50 MG TABLET (FP) PO SCH ×3 (06:17→21:11)
[2022-11-17] MEDS: INSULIN (LEVEMIR) 100 UNITS/ML UNITS SQ SCH (06:17)
[2022-11-17] MEDS: INSULIN SLIDING SCALE (NOVOLOG) 1 VIAL SQ SCH ×4 (06:20→21:16)
[2022-11-17 08:57] LABS: BASO % 0.6 % (0-2.0); EOS % 3.2 % (0-4.5); HEMOGLOBIN 11.5 GM/dL (11.7-16.9); LYMPH % 8.7 % (8-40); MCH 31.5 pg (25.7-33.7); MCHC 32.9 g/dl (32.0-35.9); MEAN CELL VOLUME 95.6 fl (80-96); MEAN PLT VOLUME 8.9 fl (7.5-11.1); MONO % 13.2 % (3.8-10.2); NEUT % 74.3 % (42.8-82.8); PLATELET COUNT 147 10^3/uL (134-434); RBC 3.66 M/mm3 (4.00-5.60); RDW 15.3 % (11.9-15.9); WHITE BLOOD COUNT 5.4 K/mm3 (4.0-10.0)
[2022-11-17 09:18] LABS: CALCIUM 8.3 mg/dL (8.5-10.1)
[2022-11-17 09:19] LABS: ALBUMIN 2.7 g/dl (3.4-5.0); BLOOD UREA NITROGEN 50.2 mg/dL (7-18)
[2022-11-17 09:23] LABS: BILIRUBIN,TOTAL 0.8 mg/dL (0.2-1); TOT PROT 5.6 g/dl (6.4-8.2)
[2022-11-17] MEDS: HEPARIN NA (PORCINE) 5,000 UNITS/ML 1ML VIAL SQ SCH ×2 (10:40→21:12)
[2022-11-17] MEDS: POLYETHYLENE GLYCOL (HEALTHYLAX) 3350 17 GM PACKET PO SCH (10:40)
[2022-11-17] MEDS: ASPIRIN 81 MG CHEWABLE TABLETS PO SCH (10:40)
[2022-11-17] MEDS: PANTOPRAZOLE 40 MG TABLET PO SCH (10:40)
[2022-11-17] MEDS ORDERED: SODIUM CHLORIDE 250 ML IV PRN (14:33)
[2022-11-17] MEDS ORDERED: EPOETIN ALFA-EPBX 4,000 UNIT/ML VIAL SQ ONE (14:33)
[2022-11-17] MEDS: DOCUSATE SODIUM 100 MG CAPSULE (FP) PO SCH (21:09)
[2022-11-17] MEDS: ATORVASTATIN CA 80 MG TABLET (FP) PO SCH (21:11)
[2022-11-18] MEDS: hydrALAZINE HCL 50 MG TABLET (FP) PO SCH ×3 (06:07→22:37)
[2022-11-18] MEDS: INSULIN SLIDING SCALE (NOVOLOG) 1 VIAL SQ SCH ×4 (06:11→22:34)
[2022-11-18] MEDS: INSULIN (LEVEMIR) 100 UNITS/ML UNITS SQ SCH (06:11)
[2022-11-18] MEDS: POLYETHYLENE GLYCOL (HEALTHYLAX) 3350 17 GM PACKET PO SCH (12:27)
[2022-11-18] MEDS: PANTOPRAZOLE 40 MG TABLET PO SCH (12:27)
[2022-11-18] MEDS: HEPARIN NA (PORCINE) 5,000 UNITS/ML 1ML VIAL SQ SCH ×2 (12:27→22:37)
[2022-11-18] MEDS: ASPIRIN 81 MG CHEWABLE TABLETS PO SCH (12:27)
[2022-11-18] MEDS: BISACODYL 10 MG SUPP.RECT PR ONE ×2 (16:57→22:37)
[2022-11-18] MEDS: DOCUSATE SODIUM 100 MG CAPSULE (FP) PO SCH (22:36)
[2022-11-18] MEDS: ATORVASTATIN CA 80 MG TABLET (FP) PO SCH (22:36)
[2022-11-19] MEDS: hydrALAZINE HCL 50 MG TABLET (FP) PO SCH ×3 (05:46→21:29)
[2022-11-19] MEDS: INSULIN SLIDING SCALE (NOVOLOG) 1 VIAL SQ SCH ×4 (06:04→21:30)
[2022-11-19] MEDS: INSULIN (LEVEMIR) 100 UNITS/ML UNITS SQ SCH (06:04)
[2022-11-19] MEDS: PANTOPRAZOLE 40 MG TABLET PO SCH (09:00)
[2022-11-19] MEDS: ASPIRIN 81 MG CHEWABLE TABLETS PO SCH (09:00)
[2022-11-19] MEDS: HEPARIN NA (PORCINE) 5,000 UNITS/ML 1ML VIAL SQ SCH ×2 (09:00→21:28)
[2022-11-19] MEDS: POLYETHYLENE GLYCOL (HEALTHYLAX) 3350 17 GM PACKET PO SCH (09:00)
[2022-11-19] MEDS: ATORVASTATIN CA 80 MG TABLET (FP) PO SCH (21:29)
[2022-11-19] MEDS: DOCUSATE SODIUM 100 MG CAPSULE (FP) PO SCH (21:30)
[2022-11-20] MEDS: hydrALAZINE HCL 50 MG TABLET (FP) PO SCH ×2 (06:27→14:24)
[2022-11-20] MEDS: INSULIN SLIDING SCALE (NOVOLOG) 1 VIAL SQ SCH ×3 (06:30→17:04)
[2022-11-20] MEDS: INSULIN (LEVEMIR) 100 UNITS/ML UNITS SQ SCH (06:30)
[2022-11-20] MEDS: HEPARIN NA (PORCINE) 5,000 UNITS/ML 1ML VIAL SQ SCH (09:58)
[2022-11-20] MEDS: PANTOPRAZOLE 40 MG TABLET PO SCH (09:58)
[2022-11-20] MEDS: ASPIRIN 81 MG CHEWABLE TABLETS PO SCH (09:58)
[2022-11-20] MEDS: POLYETHYLENE GLYCOL (HEALTHYLAX) 3350 17 GM PACKET PO SCH (09:58)
[2022-11-20 15:08] VITALS: BP 126/72; PULSE 75; RESP 20; TEMP 98.4
== END 2022-11-20 18:16 | disposition home or self-care (01) | DRG 198 ==
LOC: JER 12:50 → JERBED 16:07 → J4S 21:30
PROVIDERS: ADMIT Internal Medicine; ATTEND Internal Medicine
PROC: 5A1D70Z Performance of Urinary Filtration, Intermittent, Less than 6 Hours Per Day (ICD-10-PCS; principal; 2022-11-15)
PROC: 5A1D70Z Performance of Urinary Filtration, Intermittent, Less than 6 Hours Per Day (ICD-10-PCS; 2022-11-17)
PROC: 5A1D70Z Performance of Urinary Filtration, Intermittent, Less than 6 Hours Per Day (ICD-10-PCS; 2022-11-19)
DX: R07.89 Other chest pain (principal); I25.10 Atherosclerotic heart disease of native coronary artery without angina pectoris; E78.5 Hyperlipidemia, unspecified; E11.22 Type 2 diabetes mellitus with diabetic chronic kidney disease; N18.6 End stage renal disease; Z99.2 Dependence on renal dialysis; Z79.4 Long term (current) use of insulin; I25.2 Old myocardial infarction; E87.5 Hyperkalemia; I13.2 Hypertensive heart and chronic kidney disease with heart failure and with stage 5 chronic kidney disease, or end stage renal disease; I50.22 Chronic systolic (congestive) heart failure; K59.00 Constipation, unspecified; D64.9 Anemia, unspecified; Z98.61 Coronary angioplasty status
CPT/HCPCS: 0241U-QW; 36415; 71045-TC-FY; 80053; 80061; 81003; 82962; 83036; 83735; 83880; 84100; 84443; 84484; 85025; 86803; 87340; 87517; 93005; 93010; 93306-TC; 99285-25; J1644

== ENCOUNTER 2023-03-08 17:55 | Observation (INO) | payer OTHER ==
[2023-03-08 18:18] VITALS: BMI 22.8
[2023-03-08 21:56] LABS: INR 1.11 (0.83-1.09); PROTHROMBIN TIME (PATIENT) 12.9 SEC (9.7-13.0)
[2023-03-08 21:59] LABS: ACTIVATED PTT 35.1 SECONDS (25.2-36.5)
[2023-03-08 22:33] LABS: ALBUMIN 3.2 g/dl (3.4-5.0); BLOOD UREA NITROGEN 49.6 mg/dL (7-18); CALCIUM 9.1 mg/dL (8.5-10.1); MAGNESIUM 2.6 mg/dL (1.8-2.4)
[2023-03-08 22:36] LABS: CREATININE 7.3 mg/dL (0.55-1.3); PHOSPHOROUS 5.6 mg/dL (2.5-4.9)
[2023-03-08 22:37] LABS: BILIRUBIN,TOTAL 0.9 mg/dL (0.2-1); TOT PROT 6.8 g/dl (6.4-8.2)
[2023-03-08] MEDS ORDERED: CALCIUM GLUC IN NACL, ISO-OSM 1 GM/50 ML BAG IVPB ONE ×2 (22:44→23:21)
[2023-03-08] MEDS ORDERED: INSULIN REGULAR HUMAN 100 UNITS/ML *VIAL IVPUSH ONE (22:44)
[2023-03-08] MEDS ORDERED: DEXTROSE 50%-WATER - 25 GM/50 ML VIAL IVPUSH ONE (22:45)
[2023-03-08] MEDS ORDERED: DEXTROSE 50%-WATER 25 GM/50 ML DISP.SYRIN ONE (23:21)
[2023-03-08] MEDS ORDERED: ALBUTEROL SO4 0.083% IH SOL 2.5 MG/3 ML VIAL.NEB. NEB ONE ×2 (23:21→23:55)
[2023-03-08] MEDS ORDERED: INSULIN REGULAR HUMAN 100 UNITS/ML *VIAL ONE (23:22)
[2023-03-08] MEDS: ALBUTEROL SO4 0.083% IH SOL 2.5 MG/3 ML VIAL.NEB. NEB SCH ×2 (23:38→23:54)
[2023-03-08 23:55] LABS: BASO % 0.3 % (0-2.0); EOS % 3.1 % (0-4.5); HEMATOCRIT 30.3 % (35.4-49); HEMOGLOBIN 9.8 GM/dL (11.7-16.9); LYMPH % 7.8 % (8-40); MCH 31.2 pg (25.7-33.7); MCHC 32.3 g/dl (32.0-35.9); MEAN CELL VOLUME 96.9 fl (80-96); MEAN PLT VOLUME 8.9 fl (7.5-11.1); MONO % 12.2 % (3.8-10.2); NEUT % 76.6 % (42.8-82.8); PLATELET COUNT 112 10^3/uL (134-434); RBC 3.13 M/mm3 (4.00-5.60); RDW 17.6 % (11.9-15.9); WHITE BLOOD COUNT 5.8 K/mm3 (4.0-10.0)
[2023-03-09] MEDS: ALBUTEROL SO4 0.083% IH SOL 2.5 MG/3 ML VIAL.NEB. NEB SCH (00:11)
[2023-03-09] MEDS ORDERED: VANCOMYCIN 1 GM in D5W (PRE-DOCKED) 1,000 MG/250 ML (RESTRICTED TO ID ONLY IVPB ONE (00:24)
[2023-03-09] MEDS ORDERED: ACETAMINOPHEN 1000 MG/100 ML BAG IVPB PRN (01:45)
[2023-03-09] MEDS ORDERED: VANCOMYCIN/WATER FOR INJ (PEG) 1,000 MG/200 ML BAG IVPB ONE (01:56)
[2023-03-09] MEDS ORDERED: hydrALAZINE HCL 50 MG TABLET (FP) ONE (06:40)
[2023-03-09] MEDS: hydrALAZINE HCL 50 MG TABLET (FP) PO SCH ×3 (06:41→21:26)
[2023-03-09 06:43] LABS: BASO % 0.3 % (0-2.0); EOS % 0.6 % (0-4.5); HEMATOCRIT 28.2 % (35.4-49); LYMPH % 5.5 % (8-40); MCH 31.7 pg (25.7-33.7); MEAN PLT VOLUME 9.4 fl (7.5-11.1); MONO % 10.9 % (3.8-10.2); NEUT % 82.7 % (42.8-82.8); PLATELET COUNT 113 10^3/uL (134-434); RBC 2.85 M/mm3 (4.00-5.60); RDW 17.4 % (11.9-15.9); WHITE BLOOD COUNT 7.4 K/mm3 (4.0-10.0)
[2023-03-09 06:46] LABS: CHLORIDE 100 mmol/L (98-107); POTASSIUM 4.9 mmol/L (3.5-5.1); SODIUM 138 mmol/L (136-145)
[2023-03-09 06:51] LABS: ALBUMIN 3.3 g/dl (3.4-5.0); ANION GAP 16 MMOL/L (8-16); BLOOD UREA NITROGEN 55.8 mg/dL (7-18); CALCIUM 8.8 mg/dL (8.5-10.1); CO2 23 mmol/L (21-32); GLUCOSE,RANDOM 161 mg/dL (74-106)
[2023-03-09 06:54] LABS: SGPT/ALT 36 U/L (13-61)
[2023-03-09 06:55] LABS: SGOT/AST 17 U/L (15-37)
[2023-03-09 06:56] LABS: TOT PROT 6.3 g/dl (6.4-8.2)
[2023-03-09 07:00] LABS: BILIRUBIN,TOTAL 0.7 mg/dL (0.2-1)
[2023-03-09 07:05] LABS: ALK PHOS 396 U/L (45-117); CREATININE 7.8 mg/dL (0.55-1.3)
[2023-03-09] MEDS: INSULIN SLIDING SCALE (NOVOLOG) 1 VIAL SQ SCH ×5 (08:41→21:45)
[2023-03-09] MEDS ORDERED: SODIUM ZIRCONIUM CYCLOSILICATE (LOKELMA) 10 GM PACKET ONE (09:16)
[2023-03-09] MEDS ORDERED: HEPARIN NA (PORCINE) 5,000 UNITS/ML 1ML VIAL ONE (09:16)
[2023-03-09] MEDS ORDERED: ASPIRIN 81 MG CHEWABLE TABLETS ONE (09:16)
[2023-03-09] MEDS ORDERED: INSULIN (LEVEMIR) 100 UNITS/ML UNITS SQ ONE (09:17)
[2023-03-09] MEDS: ASPIRIN 81 MG CHEWABLE TABLETS PO SCH (09:25)
[2023-03-09] MEDS: SODIUM ZIRCONIUM CYCLOSILICATE (LOKELMA) 5 GM PACKET PO SCH (09:25)
[2023-03-09] MEDS: INSULIN (LEVEMIR) 100 UNITS/ML UNITS SQ SCH (09:25)
[2023-03-09] MEDS: HEPARIN NA (PORCINE) 5,000 UNITS/ML 1ML VIAL SQ SCH ×2 (09:36→21:26)
[2023-03-09] MEDS: PIPERACILLIN/TAZOB 2.25 GM 2.25 GM in DEXTROSE 5%-WATER - 50 ML IVPB SCH (17:59)
[2023-03-09] MEDS: ATORVASTATIN CA 80 MG TABLET (FP) PO SCH (21:27)
[2023-03-10] MEDS: PIPERACILLIN/TAZOB 2.25 GM 2.25 GM in DEXTROSE 5%-WATER - 50 ML IVPB SCH ×2 (03:43→09:33)
[2023-03-10] MEDS: INSULIN SLIDING SCALE (NOVOLOG) 1 VIAL SQ SCH ×4 (06:21→21:27)
[2023-03-10] MEDS: hydrALAZINE HCL 50 MG TABLET (FP) PO SCH ×3 (06:35→21:27)
[2023-03-10 06:48] LABS: BASO % 0.6 % (0-2.0); EOS % 3.8 % (0-4.5); HEMATOCRIT 31.5 % (35.4-49); HEMOGLOBIN 10.1 GM/dL (11.7-16.9); LYMPH % 5.6 % (8-40); MCH 31.5 pg (25.7-33.7); MEAN CELL VOLUME 98.4 fl (80-96); MEAN PLT VOLUME 9.2 fl (7.5-11.1); MONO % 11.1 % (3.8-10.2); NEUT % 78.9 % (42.8-82.8); PLATELET COUNT 127 10^3/uL (134-434); RDW 17.3 % (11.9-15.9); WHITE BLOOD COUNT 5.8 K/mm3 (4.0-10.0)
[2023-03-10 07:13] LABS: POTASSIUM 4.4 mmol/L (3.5-5.1)
[2023-03-10 07:22] LABS: BLOOD UREA NITROGEN 33.6 mg/dL (7-18)
[2023-03-10 07:25] LABS: CREATININE 5.5 mg/dL (0.55-1.3)
[2023-03-10 07:27] LABS: BILIRUBIN,TOTAL 1.1 mg/dL (0.2-1); TOT PROT 6.3 g/dl (6.4-8.2)
[2023-03-10] MEDS: SODIUM ZIRCONIUM CYCLOSILICATE (LOKELMA) 5 GM PACKET PO SCH (09:25)
[2023-03-10] MEDS: ASPIRIN 81 MG CHEWABLE TABLETS PO SCH (09:25)
[2023-03-10] MEDS: HEPARIN NA (PORCINE) 5,000 UNITS/ML 1ML VIAL SQ SCH (09:25)
[2023-03-10] MEDS: INSULIN (LEVEMIR) 100 UNITS/ML UNITS SQ SCH (09:27)
[2023-03-10] MEDS ORDERED: INSULIN (NOVOLOG) ASPART 100 UNITS/ML 10ML VIAL ONE ×2 (11:07→21:00)
[2023-03-10] MEDS: ATORVASTATIN CA 80 MG TABLET (FP) PO SCH (21:27)
[2023-03-11] MEDS: hydrALAZINE HCL 50 MG TABLET (FP) PO SCH (05:14)
[2023-03-11] MEDS: INSULIN SLIDING SCALE (NOVOLOG) 1 VIAL SQ SCH ×4 (06:17→21:23)
[2023-03-11 09:10] LABS: MAGNESIUM 2.5 mg/dL (1.8-2.4)
[2023-03-11 09:10] LABS: MAGNESIUM 2.4 mg/dL (1.8-2.4)
[2023-03-11] MEDS ORDERED: INSULIN (NOVOLOG) ASPART 100 UNITS/ML 10ML VIAL ONE ×2 (10:33→21:22)
[2023-03-11] MEDS: ASPIRIN 81 MG CHEWABLE TABLETS PO SCH (10:39)
[2023-03-11] MEDS: INSULIN (LEVEMIR) 100 UNITS/ML UNITS SQ SCH (10:39)
[2023-03-11] MEDS: SODIUM ZIRCONIUM CYCLOSILICATE (LOKELMA) 5 GM PACKET PO SCH (10:40)
[2023-03-11 11:18] LABS: N-TERMINAL BNP 26993.3 pg/ml (5-125)
[2023-03-11] MEDS: SACUBITRIL/VALSARTAN 24 MG-26 MG TABLET PO SCH ×2 (12:31→21:23)
[2023-03-11] MEDS: ATORVASTATIN CA 80 MG TABLET (FP) PO SCH (21:23)
[2023-03-12] MEDS: INSULIN SLIDING SCALE (NOVOLOG) 1 VIAL SQ SCH ×4 (06:20→21:16)
[2023-03-12 07:56] LABS: HEMATOCRIT 30.8 % (35.4-49); HEMOGLOBIN 9.9 GM/dL (11.7-16.9); MCH 31.7 pg (25.7-33.7); MCHC 32.2 g/dl (32.0-35.9); MEAN CELL VOLUME 98.3 fl (80-96); MEAN PLT VOLUME 9.4 fl (7.5-11.1); PLATELET COUNT 139 10^3/uL (134-434); RBC 3.13 M/mm3 (4.00-5.60); RDW 16.9 % (11.9-15.9); WHITE BLOOD COUNT 5.9 K/mm3 (4.0-10.0)
[2023-03-12 08:31] LABS: CHLORIDE 98 mmol/L (98-107); POTASSIUM 4.9 mmol/L (3.5-5.1); SODIUM 137 mmol/L (136-145)
[2023-03-12 08:32] LABS: CALCIUM 8.5 mg/dL (8.5-10.1)
[2023-03-12 08:33] LABS: ANION GAP 14 MMOL/L (8-16); CO2 26 mmol/L (21-32); GLUCOSE,RANDOM 129 mg/dL (74-106); MAGNESIUM 2.6 mg/dL (1.8-2.4)
[2023-03-12 08:36] LABS: PHOSPHOROUS 6.3 mg/dL (2.5-4.9)
[2023-03-12 08:41] LABS: BLOOD UREA NITROGEN 71.8 mg/dL (7-18); CREATININE 8.2 mg/dL (0.55-1.3)
[2023-03-12] MEDS: INSULIN (LEVEMIR) 100 UNITS/ML UNITS SQ SCH (09:41)
[2023-03-12] MEDS: SODIUM ZIRCONIUM CYCLOSILICATE (LOKELMA) 5 GM PACKET PO SCH (09:41)
[2023-03-12] MEDS: ASPIRIN 81 MG CHEWABLE TABLETS PO SCH (09:41)
[2023-03-12] MEDS: SACUBITRIL/VALSARTAN 24 MG-26 MG TABLET PO SCH ×2 (09:41→21:12)
[2023-03-12] MEDS ORDERED: SODIUM CHLORIDE 250 ML IV PRN (09:43)
[2023-03-12 15:17] LABS: ALBUMIN 2.9 g/dl (3.4-5.0)
[2023-03-12 15:19] LABS: BILIRUBIN,DIRECT 0.6 mg/dL (0.0-0.2); SGPT/ALT 42 U/L (13-61)
[2023-03-12 15:20] LABS: SGOT/AST 23 U/L (15-37)
[2023-03-12 15:21] LABS: BILIRUBIN,TOTAL 0.8 mg/dL (0.2-1); TOT PROT 6.1 g/dl (6.4-8.2)
[2023-03-12 15:22] LABS: ALK PHOS 399 U/L (45-117)
[2023-03-12 15:33] LABS: BF WBC & OTHER NUCLEATED CELLS 368 /mm3
[2023-03-12] MEDS ORDERED: EPOETIN ALFA-EPBX 3,000 UNIT/ML VIAL SQ ONE (16:00)
[2023-03-12 16:14] LABS: BODY FLUID MACROPHAGES 52 %; BODY FLUID MESOTHELIAL 6 %; BODY FLUID MONOCYTE 10 %
[2023-03-12] MEDS ORDERED: ACETAMINOPHEN 325 MG TABLET (FP) PO ONE (20:22)
[2023-03-12] MEDS: ATORVASTATIN CA 80 MG TABLET (FP) PO SCH (21:12)
[2023-03-13] MEDS: INSULIN SLIDING SCALE (NOVOLOG) 1 VIAL SQ SCH ×4 (06:19→23:01)
[2023-03-13 08:06] LABS: BASO % 0.5 % (0-2.0); EOS % 2.4 % (0-4.5); HEMATOCRIT 32.2 % (35.4-49); HEMOGLOBIN 10.8 GM/dL (11.7-16.9); LYMPH % 4.7 % (8-40); MCH 32.3 pg (25.7-33.7); MCHC 33.5 g/dl (32.0-35.9); MEAN CELL VOLUME 96.3 fl (80-96); MEAN PLT VOLUME 9.1 fl (7.5-11.1); MONO % 12.5 % (3.8-10.2); NEUT % 79.9 % (42.8-82.8); PLATELET COUNT 134 10^3/uL (134-434); RBC 3.34 M/mm3 (4.00-5.60); RDW 16.7 % (11.9-15.9); WHITE BLOOD COUNT 6.2 K/mm3 (4.0-10.0)
[2023-03-13 08:14] LABS: POTASSIUM 3.9 mmol/L (3.5-5.1)
[2023-03-13 08:27] LABS: CALCIUM 8.5 mg/dL (8.5-10.1)
[2023-03-13 08:28] LABS: MAGNESIUM 2.1 mg/dL (1.8-2.4)
[2023-03-13 08:31] LABS: CREATININE 5.4 mg/dL (0.55-1.3)
[2023-03-13 08:32] LABS: BILIRUBIN,TOTAL 1.2 mg/dL (0.2-1); PHOSPHOROUS 4.6 mg/dL (2.5-4.9); TOT PROT 6.4 g/dl (6.4-8.2)
[2023-03-13 08:35] LABS: BLOOD UREA NITROGEN 35.6 mg/dL (7-18)
[2023-03-13] MEDS: ASPIRIN 81 MG CHEWABLE TABLETS PO SCH (09:44)
[2023-03-13] MEDS: INSULIN (LEVEMIR) 100 UNITS/ML UNITS SQ SCH (09:44)
[2023-03-13] MEDS: SACUBITRIL/VALSARTAN 24 MG-26 MG TABLET PO SCH ×2 (09:44→23:04)
[2023-03-13] MEDS: SPIRONOLACTONE 25 MG TABLET PO SCH (15:37)
[2023-03-13] MEDS: SODIUM ZIRCONIUM CYCLOSILICATE (LOKELMA) 5 GM PACKET PO SCH (15:39)
[2023-03-13 18:07] LABS: BODY FLUID ALBUMIN 1.9 g/dL (Not Estab.)
[2023-03-13] MEDS ORDERED: ARTIFICIAL TEARS (POLYVINYL ALCOHOL) OPTH DROPS OU PRN (20:32)
[2023-03-13] MEDS: ATORVASTATIN CA 80 MG TABLET (FP) PO SCH (23:04)
[2023-03-14 06:47] VITALS: RESP 18
[2023-03-14] MEDS: INSULIN SLIDING SCALE (NOVOLOG) 1 VIAL SQ SCH ×4 (06:47→22:06)
[2023-03-14] MEDS ORDERED: SODIUM CHLORIDE 250 ML IV PRN (06:59)
[2023-03-14] MEDS ORDERED: INSULIN (LEVEMIR) 100 UNITS/ML UNITS SQ SCH (10:00)
[2023-03-14] MEDS: ASPIRIN 81 MG CHEWABLE TABLETS PO SCH (10:27)
[2023-03-14] MEDS: SACUBITRIL/VALSARTAN 24 MG-26 MG TABLET PO SCH ×2 (10:27→22:05)
[2023-03-14] MEDS: PANTOPRAZOLE 40 MG TABLET PO SCH (10:27)
[2023-03-14] MEDS: INSULIN (LEVEMIR) 100 UNITS/ML UNITS SQ SCH (10:28)
[2023-03-14] MEDS: SPIRONOLACTONE 25 MG TABLET PO SCH (10:32)
[2023-03-14 10:44] LABS: BASO % 0.6 % (0-2.0); EOS % 1.8 % (0-4.5); HEMATOCRIT 32.6 % (35.4-49); HEMOGLOBIN 10.8 GM/dL (11.7-16.9); LYMPH % 5.8 % (8-40); MCH 31.8 pg (25.7-33.7); MEAN CELL VOLUME 96.3 fl (80-96); MEAN PLT VOLUME 9.4 fl (7.5-11.1); NEUT % 80.8 % (42.8-82.8); PLATELET COUNT 158 10^3/uL (134-434); RBC 3.38 M/mm3 (4.00-5.60); RDW 16.8 % (11.9-15.9); WHITE BLOOD COUNT 7.4 K/mm3 (4.0-10.0)
[2023-03-14 11:12] LABS: POTASSIUM 4.6 mmol/L (3.5-5.1)
[2023-03-14 11:29] LABS: ALBUMIN 3.4 g/dl (3.4-5.0)
[2023-03-14 11:30] LABS: BLOOD UREA NITROGEN 55.5 mg/dL (7-18)
[2023-03-14 11:31] LABS: MAGNESIUM 2.3 mg/dL (1.8-2.4)
[2023-03-14] MEDS ORDERED: INSULIN (LEVEMIR) 100 UNITS/ML UNITS SQ ONE (11:31)
[2023-03-14 11:34] LABS: PHOSPHOROUS 6.4 mg/dL (2.5-4.9)
[2023-03-14] MEDS ORDERED: ACETAMINOPHEN 325 MG TABLET (FP) PO PRN (15:36)
[2023-03-14] MEDS ORDERED: HEPARIN NA (PORCINE) 5,000 UNITS/ML 1ML VIAL SQ SCH (22:00)
[2023-03-14] MEDS: ATORVASTATIN CA 80 MG TABLET (FP) PO SCH (22:05)
[2023-03-15] MEDS: INSULIN SLIDING SCALE (NOVOLOG) 1 VIAL SQ SCH ×2 (06:04→11:20)
[2023-03-15] MEDS ORDERED: HEPARIN NA (PORCINE) 5,000 UNITS/ML 1ML VIAL SQ SCH (10:00)
[2023-03-15] MEDS ORDERED: SPIRONOLACTONE 25 MG TABLET PO SCH (10:00)
[2023-03-15 10:03] LABS: POTASSIUM 4.2 mmol/L (3.5-5.1)
[2023-03-15 10:13] LABS: ALBUMIN 3.2 g/dl (3.4-5.0); BLOOD UREA NITROGEN 30.9 mg/dL (7-18); MAGNESIUM 2.1 mg/dL (1.8-2.4)
[2023-03-15 10:16] LABS: PHOSPHOROUS 4.3 mg/dL (2.5-4.9)
[2023-03-15 10:17] LABS: BILIRUBIN,TOTAL 1.1 mg/dL (0.2-1); TOT PROT 6.9 g/dl (6.4-8.2)
[2023-03-15 10:40] LABS: HEMATOCRIT 32.9 % (35.4-49); HEMOGLOBIN 10.7 GM/dL (11.7-16.9); MCH 32.1 pg (25.7-33.7); MCHC 32.5 g/dl (32.0-35.9); MEAN CELL VOLUME 98.9 fl (80-96); MEAN PLT VOLUME 9.3 fl (7.5-11.1); PLATELET COUNT 178 10^3/uL (134-434); RBC 3.33 M/mm3 (4.00-5.60); RDW 16.5 % (11.9-15.9); WHITE BLOOD COUNT 6.3 K/mm3 (4.0-10.0)
[2023-03-15] MEDS: INSULIN (LEVEMIR) 100 UNITS/ML UNITS SQ SCH (11:18)
[2023-03-15] MEDS: SACUBITRIL/VALSARTAN 24 MG-26 MG TABLET PO SCH (11:18)
[2023-03-15] MEDS: ASPIRIN 81 MG CHEWABLE TABLETS PO SCH (11:18)
[2023-03-15] MEDS: PANTOPRAZOLE 40 MG TABLET PO SCH (11:18)
[2023-03-15 12:16] VITALS: BP 120/78; PULSE 74; TEMP 98.6
[2023-03-15 18:08] LABS: GLIADIN ANTIBODY IGA 5 units (0-19); GLIADIN ANTIBODY IGG 3 units (0-19); TRANSGLUTAMINASE IGG < 2 U/mL (0-5)
== END 2023-03-15 15:30 | disposition home or self-care (01) ==
LOC: JER 17:55 → INTOOBSV 03-09 01:34 → UNDOADMOB 03-09 01:34 → JERBED 03-09 01:34 → J4W 03-09 14:57 → J5S 03-13 21:19
PROVIDERS: ADMIT Internal Medicine; ATTEND Internal Medicine
PROC: 3E0F7GC Introduction of Other Therapeutic Substance into Respiratory Tract, Via Natural or Artificial Opening (ICD-10-PCS; principal; 2023-03-09)
PROC: 3E033GC Introduction of Other Therapeutic Substance into Peripheral Vein, Percutaneous Approach (ICD-10-PCS; 2023-03-09)
PROC: 3E023GC Introduction of Other Therapeutic Substance into Muscle, Percutaneous Approach (ICD-10-PCS; 2023-03-09)
PROC: 3E013VG Introduction of Insulin into Subcutaneous Tissue, Percutaneous Approach (ICD-10-PCS; 2023-03-09)
PROC: 3E033VG Introduction of Insulin into Peripheral Vein, Percutaneous Approach (ICD-10-PCS; 2023-03-09)
PROC: 3E03329 Introduction of Other Anti-infective into Peripheral Vein, Percutaneous Approach (ICD-10-PCS; 2023-03-09)
DX: I12.0 Hypertensive chronic kidney disease with stage 5 chronic kidney disease or end stage renal disease (principal); R19.00 Intra-abdominal and pelvic swelling, mass and lump, unspecified site; E11.22 Type 2 diabetes mellitus with diabetic chronic kidney disease; R94.8 Abnormal results of function studies of other organs and systems; I25.10 Atherosclerotic heart disease of native coronary artery without angina pectoris; L03.113 Cellulitis of right upper limb; N18.6 End stage renal disease; K92.9 Disease of digestive system, unspecified; Z99.2 Dependence on renal dialysis; Z79.4 Long term (current) use of insulin; E78.5 Hyperlipidemia, unspecified; E87.5 Hyperkalemia; Z88.8 Allergy status to other drugs, medicaments and biological substances
CPT/HCPCS: 36415; 71046-TC-FY; 74176-TC; 74178-TC; 74181-TC; 76942-TC; 80048; 80053; 80061; 80076; 82042; 82105; 82150; 82378; 82465; 82728; 82784; 82945; 82962; 82977; 83036; 83516; 83540; 83550; 83615; 83690; 83735; 83880; 83986; 84100; 84157; 84478; 84484; 85025; 85027; 85610; 85730; 86038; 86140; 86301; 86803; 86850; 86900; 86901; 87040; 87070; 87075; 87102; 87116; 87205; 87206; 87210; 87340; 88108; 88305-TC; 93005; 93010; 93306-TC; 93990-TC; 94640; 96365; 96372; 96375; 97116-GP; 97161-GP; 99285-25; G0378; J1644; Q5106; Q9967

== ENCOUNTER 2023-10-01 13:24 | Emergency (ER) | payer OTHER ==
[2023-10-01 13:35] VITALS: BMI 23.3
[2023-10-01 15:20] LABS: BASO % 0.7 % (0-2.0); HEMATOCRIT 29.3 % (35.4-49); HEMOGLOBIN 9.8 GM/dL (11.7-16.9); MCHC 33.3 g/dl (32.0-35.9); MEAN CELL VOLUME 98.8 fl (80-96); MEAN PLT VOLUME 8.5 fl (7.5-11.1); MONO % 14.5 % (3.8-10.2); NEUT % 79.8 % (42.8-82.8); PLATELET COUNT 126 10^3/uL (134-434); RBC 2.97 M/mm3 (4.00-5.60); RDW 14.1 % (11.9-15.9); WHITE BLOOD COUNT 6.8 K/mm3 (4.0-10.0)
[2023-10-01] MEDS ORDERED: IBUPROFEN 600 MG TABLET (FP) PO ONE ×2 (15:30→15:49)
[2023-10-01 15:40] LABS: POTASSIUM 4.6 mmol/L (3.5-5.1)
[2023-10-01 15:43] LABS: CALCIUM 8.8 mg/dL (8.5-10.1)
[2023-10-01 15:44] LABS: ALBUMIN 3.3 g/dl (3.4-5.0); BLOOD UREA NITROGEN 34.9 mg/dL (7-18)
[2023-10-01 15:47] LABS: CREATININE 5.3 mg/dL (0.55-1.3)
[2023-10-01 15:48] LABS: TOT PROT 7.2 g/dl (6.4-8.2)
[2023-10-01 17:30] VITALS: BP 134/53; PULSE 74; RESP 18; TEMP 99.1
== END 2023-10-01 19:15 | disposition home or self-care (01) ==
LOC: JER 13:24
DX: R50.9 Fever, unspecified (principal); R09.89 Other specified symptoms and signs involving the circulatory and respiratory systems; R53.1 Weakness; R10.31 Right lower quadrant pain; U07.1 COVID-19; R53.83 Other fatigue
CPT/HCPCS: 0241U-QW; 36415; 70450-TC; 71045-TC-FY; 74177-TC; 80053; 83605; 84484; 85025; 87040; 93005; 93010; 99285-25